=== PATIENT | male | born 1955 | race Caucasian/White ===

== ENCOUNTER → 2017-10-31 | Outpatient (CLI) | payer OTHER ==
--- NOTE | 2017-10-31 17:25 | US ---
EXAMINATION TYPE: US kidneys/renal and bladder DATE OF EXAM: 10/31/2017 COMPARISON: NONE CLINICAL HISTORY: R109 UNSPECIFIED ABDOMINAL PAIN. EXAM MEASUREMENTS: Right Kidney: 11.1 x 5.0 x 3.9 cm Left Kidney: 12.4 x 6.6 x 5.4 cm Right Kidney: No hydronephrosis or masses seen Left Kidney: No hydronephrosis or masses seen Bladder: wnl Bilateral Jets seen: Yes There is no evidence for hydronephrosis at this point in time. No nephrolithiasis is seen. No fam s are identified. The urinary bladder is anechoic. Bilateral ureteral jets are seen. IMPRESSION: Normal retroperitoneal sonogram exam. No evidence of renal mass or obstruction.
--- NOTE | 2017-10-31 17:25 | US ---
EXAMINATION TYPE: US duplex aorta DATE OF EXAM: 10/31/2017 COMPARISON: NONE CLINICAL HISTORY: ABDOMINAL PAIN. EXAM MEASUREMENTS: Abdominal Aorta: Proximal: 2.2 cm Mid: 1.9 cm Distal: 1.9 cm Bifurcation: Right: 1.3 cm Left: 1.3 cm No AAA visualized on this exam IMPRESSION: Normal exam. No evidence of abdominal aortic aneurysm.
== END | disposition home or self-care (01) ==
LOC: RADUSWWP 16:03
PROVIDERS: ATTEND Family Medicine
DX: R10.9 Unspecified abdominal pain (principal)
CPT/HCPCS: 76770; 93979

== ENCOUNTER 2018-06-12 09:52 | Day surgery (SDC) | payer OTHER ==
[2018-06-10 09:04] VITALS: BMI 27.4
[~2018-06-12 09:52] MED LIST: DEXAMETHASONE SOD PHOSPHATE 4 MG/ML 1 ML VIAL IV ONE; FAMOTIDINE 20 MG/2 ML VIAL IV ONE; LACTATED RINGERS 1,000 ML IV SCH; LIDOCAINE 1% 20 ML VIAL (10MG/ML) FOR IV START INTRADERMA PRN; ONDANSETRON 4 MG/2 ML VIAL IVP ONE; OXYMETAZOLINE 0.05% NASL SPRAY 1 SPRAY BOTTLE NASAL ONE; ceFAZolin 1,000 MG in DEXTROSE/WATER 1 50ML.BAG IV ONE
[2018-06-12] MEDS ORDERED: OXYMETAZOLINE 0.05% NASL SPRAY 1 SPRAY BOTTLE NASAL ONE ×5 (10:25→10:45)
[2018-06-12] MEDS ORDERED: ONDANSETRON 4 MG/2 ML VIAL IVP ONE (10:32)
[2018-06-12] MEDS ORDERED: FAMOTIDINE 20 MG/2 ML VIAL IVP ONE (10:37)
[2018-06-12] MEDS ORDERED: PHENYLEPHRINE-0.9% NACL SYG 1 MG/10 ML SYRINGE ONE (11:23)
[2018-06-12] MEDS ORDERED: HYDROmorphone (PF) 1 MG/ML ONE (11:23)
[2018-06-12] MEDS ORDERED: SUCCINYLCHOLINE CHLORIDE 100 MG/5 ML SYR IV ONE (11:23)
[2018-06-12] MEDS ORDERED: MIDAZOLAM 2 MG/2 ML VIAL ONE (11:23)
[2018-06-12] MEDS ORDERED: fentaNYL (PF) 50 MCG/ML 2 ML AMP ONE (11:23)
[2018-06-12] MEDS ORDERED: DEXAMETHASONE SOD PHOS (MDV) 100 MG/10 ML VIAL ONE (11:23)
[2018-06-12] MEDS ORDERED: PROPOFOL 10 MG/ML 20 ML VIAL IV ONE (11:23)
[2018-06-12] MEDS ORDERED: LIDOCAINE 1%-EPI 1:100,000 30 ML VIAL SQ ONE ×2 (11:46)
[2018-06-12] MEDS ORDERED: BACITRACIN OINT 1 EACH PACKET TOPICAL ONE (11:57)
--- NOTE | 2018-06-12 12:37 | P.OP ---
Date of Procedure: 06/12/18 Preoperative Diagnosis: Deviated nasal septum Inferior turbinate hypertrophy Obstructive sleep apnea Postoperative Diagnosis: Same Procedure(s) Performed: Septoplasty Outfracture and submucous resection of the inferior turbinates Uvulopalatopharyngoplasty Anesthesia: HORACEA Surgeon: Jose E Shen Estimated Blood Loss (ml): 5 Pathology: other (Nasal septal bone and cartilage uvula and soft palate) Condition: stable Disposition: PACU Indications for Procedure: This 62-year-old white male who has history of nasal airway obstruction congestion snoring and mild sleep apnea with an RDI of 14. He did not tolerate the CPAP for medical management for his nasal airway obstruction. Operative Findings: Nasal septum deviated to the right anterior to the left posterior with inferior turbinate hypertrophy bilaterally. The uvula and soft palate are low-lying and redundant Description of Procedure: The patient was brought in the operative suite and placed in a supine position. The patient underwent induction of general anesthesia with oral endotracheal intubation without difficulty. The patient prepped and draped in usual aseptic fashion. 1% lidocaine with 1-100,000 epinephrine was infused submucosally both sides nasal septum. While this was taking vasoconstrictive effect the inferior turbinates were infractured with [place] elevator partial submucous resection inferior turbinates was performed using Coblation device therefore ablating a portion of the inferior turbinate soft tissue and then outfractured with the [place] elevator. A left hemitransfixion incision was made and mucoperichondrial fascia flap on left elevated. Bony cartilaginous junction was disarticulated and the vaginal flap on the right was elevated. Bony nasal septal deformities were removed Gail forceps. An inferior cartilaginous strip was removed leaving a full 1.5 cm caudal strut. Checking intranasally this corrected nasoseptal deformities and the hemitransfixion incision was closed with running 4-0 chromic suture. Bilateral Robert airway splints coated bacitracin ointment were placed in nasal cavities and sutured trans-septally of 4-0 nylon suture. The McIvor mouth gag was then placed and the soft palate was palpated and no submucous cleft was noted. Soft palate was then retracted anteriorly to ascertain the natural crease and the uvula as well as a small portion of the free edge of the soft palate were then excised with sharp dissection technique and hemostasis gained with electrocautery. The muscular layer of the soft palate was left intact. The free edge of the mucosa was then closed with simple interrupted 3-0 Vicryl suture. There was good hemostasis noted. The patient was suctioned in oral gastric fashion the McIvor mouth gag was removed. Patient was allowed to emerge from general anesthesia and extubated in the operating suite and transferred to postop recovery area in satisfactory condition.
[2018-06-12 12:53] VITALS: TEMP 97.6
[2018-06-12] MEDS: HYDROmorphone 0.5 MG/0.5 ML SYRINGE IVP PRN ×2 (13:09→13:14)
[2018-06-12] MEDS ORDERED: LABETALOL SYRINGE 5 MG/ML IVP ONE (13:36)
[2018-06-12] MEDS ORDERED: MORPHINE SULFATE 4 MG/ML SYRINGE IVP ONE (13:51)
[2018-06-12] MEDS: hydrALAZINE HCL 20 MG/ML 1 ML VIAL IVP ONE ×2 (13:57→14:05)
[2018-06-12] MEDS ORDERED: HYDROcodone/APAP 7.5-325MG 1 EACH TAB PO ONE (14:55)
[2018-06-12 16:10] VITALS: BP 131/87; PULSE 81; RESP 18
== END 2018-06-12 16:11 | disposition home or self-care (01) ==
LOC: OR 09:52
PROVIDERS: ATTEND Otolaryngology
DX: J34.3 Hypertrophy of nasal turbinates (principal); J34.2 Deviated nasal septum; G47.33 Obstructive sleep apnea (adult) (pediatric); E78.00 Pure hypercholesterolemia, unspecified; I10 Essential (primary) hypertension; Z87.891 Personal history of nicotine dependence; Z79.899 Other long term (current) drug therapy; Z79.2 Long term (current) use of antibiotics; Z79.51 Long term (current) use of inhaled steroids; Z88.2 Allergy status to sulfonamides
CPT/HCPCS: 88300; 88302

== ENCOUNTER 2022-06-28 08:04 | Day surgery (SDC) | payer BC, OTHER ==
[2022-06-26 13:39] VITALS: BMI 28.0
[~2022-06-28 08:04] MED LIST changes: -DEXAMETHASONE SOD PHOSPHATE 4 MG/ML 1 ML VIAL IV ONE; -FAMOTIDINE 20 MG/2 ML VIAL IV ONE; -LACTATED RINGERS 1,000 ML IV SCH; +LIDOCAINE 1% (10MG/ML) FOR IV START INTRADERMA PRN; -LIDOCAINE 1% 20 ML VIAL (10MG/ML) FOR IV START INTRADERMA PRN; -ONDANSETRON 4 MG/2 ML VIAL IVP ONE; -OXYMETAZOLINE 0.05% NASL SPRAY 1 SPRAY BOTTLE NASAL ONE; -ceFAZolin 1,000 MG in DEXTROSE/WATER 1 50ML.BAG IV ONE
[2022-06-28 08:31] VITALS: RESP 16; TEMP 98.3
[2022-06-28] MEDS: LACTATED RINGERS 1,000 ML IV SCH ×2 (08:38→09:10)
[2022-06-28] MEDS ORDERED: PROPOFOL 10 MG/ML 20 ML VIAL IV ONE (09:12)
--- NOTE | 2022-06-28 09:32 | P.PCN ---
Date of Procedure: 06/28/22 Procedure(s) Performed: BRIEF HISTORY: Patient is a 66-year-old pleasant male scheduled for an elective colonoscopy as a part of screening for colorectal neoplasia. He also has family history of colon cancer diagnosed in her brother at age 60 PROCEDURE PERFORMED: Colonoscopy with snare polypectomy. PREOPERATIVE DIAGNOSIS: Screening for colon cancer and family history of colon cancer. IV sedation per Anesthesia. PROCEDURE: After informed consent was obtained, the patient, was brought into the endoscopy unit. IV sedation was administered by Anesthesia under continuous monitoring. Digital rectal examination was normal. Initially the Olympus CF-160 flexible video colonoscope was then inserted in the rectum, gradually advanced into the cecum without any difficulty. Careful examination was performed as the scope was gradually being withdrawn. Ileocecal valve and the appendiceal orifice were visualized and appeared normal. Prep was excellent. Mucosa of the cecum had a 5 mm sessile polyp removed by snare polypectomy. Mucosa of the, ascending colon, transverse colon, descending colon, sigmoid colon, and rectum appeared normal. Retroflexion was performed in the rectum and no lesions were seen. Scattered sigmoid diverticulosis seen. The patient tolerated the procedure well. IMPRESSION: 5 mm cecal polyp status post polypectomy Scattered sigmoid diverticulosis RECOMMENDATIONS: Findings of this examination were discussed with the patient as well as his family. He was advised to follow with the biopsy results. Recommend repeat colonoscopy in 5 years because of the family history of colon cancer
[2022-06-28 09:53] VITALS: BP 137/81; PULSE 55
== END 2022-06-28 10:15 | disposition home or self-care (01) ==
LOC: ORWHC2ENDO 08:04
PROVIDERS: ATTEND Internal Medicine Gastroenterology
DX: Z12.11 Encounter for screening for malignant neoplasm of colon (principal); D12.0 Benign neoplasm of cecum; K57.30 Diverticulosis of large intestine without perforation or abscess without bleeding; Z80.0 Family history of malignant neoplasm of digestive organs; I10 Essential (primary) hypertension; E78.5 Hyperlipidemia, unspecified; G47.33 Obstructive sleep apnea (adult) (pediatric); Z87.891 Personal history of nicotine dependence; Z79.899 Other long term (current) drug therapy; Z88.2 Allergy status to sulfonamides
CPT/HCPCS: 88305; 45385; J2704